=== PATIENT | female | born 1985 | race African-American/Black ===

== ENCOUNTER 2021-06-06 09:11 | Emergency (ER) | payer OTHER, SELFPAY ==
--- NOTE | ~2021-06-06 | CT_ITS ---
EXAMINATION: CT abdomen pelvis w con DATE: 06/06/2021 10:27 INDICATION: Abdominal pain and distention TECHNIQUE: Computed tomography (CT) of the abdomen and pelvis was performed with 100 mL Omnipaque-350 intravenous contrast. Automated exposure control and iterative reconstruction technique were employe d. The dose-length product was 1044.35 mGy-cm. COMPARISON: 08/12/2012 FINDINGS: Lung bases are clear. Heart size is normal. No pericardial or pleural effusion. Liver, gallbladder, s pleen, pancreas, bilateral adrenal glands and kidneys are normal. There are few diverticula along the sigmoid colon without adjacent inflammatory change to suggest div erticulitis. There is wall thickening along the proximal sigmoid colon which could be due to incomple te distention or mild colitis either infectious, inflammatory or ischemic in etiology. Normal appendi x measuring 8 mm in diameter with no periappendiceal inflammatory stranding to suggest acute appendic itis. Bladder, anteverted uterus and left adnexa are normal. 2.3 cm peripherally enhancing likely cor pus luteum cyst at the right adnexa. Small amount of likely physiologic free fluid in the deep pelvis . Subtle haziness to the fat at the root of the mesentery with no interval change in several mildly p rominent but still normal-sized mesenteric lymph nodes. No pathologically enlarged abdominal or pelvi c lymphadenopathy. Bones are unremarkable. IMPRESSION: 1. 2.3 cm likely corpus luteum cyst at the right adnexa with small amount of likely physiologic free fluid in the pelvis. 2. Mild wall thickening along the proximal sigmoid colon which could be due to incomplete distention although differential includes a mild colitis either infectious, inflammatory or ischemic in etiology . Reviewed, dictated and finalized at location A. IMPRESSION: 1. 2.3 cm likely corpus luteum cyst at the right adnexa with small amount of li slava physiologic free fluid in the pelvis. 2. Mild wall thickening along the proximal sigmoid colon which could be due to incomplete distention although differential includes a mild colitis either infe ctious, inflammatory or ischemic in etiology.
--- NOTE | ~2021-06-06 | US_ITS ---
CORRECTED REPORT EXAMINATION changd to US pelvic complete 06/06/2021 [facility] [place] EXAMINATION: US pelvic complete DATE: 06/06/2021 11:33 INDICATION: Ovarian cyst. Comparison:No prior studies for comparison. TECHNIQUE: Multiple transabdominal sonographic images of the pelvis performed. FINDINGS: The uterus measures 11.4 x 6.2 x 5.3 cm. The endometrial complex measures 8.7 mm. The right ovary measures 3.3 x 2.8 x 2.6 cm and the left ovary measures 3.4 x 1.9 x 1.8 cm. There are small follicles in each ovary. Normal doppler signal in both ovaries. There is no free fluid in the pelvis. There are no abnormal masses seen on either side. IMPRESSION: 1. Unremarkable pelvic ultrasound. Reviewed, dictated and finalized at location B. MTDD
[2021-06-06 09:18] VITALS: BP 116/66; PULSE 77; RESP 14; TEMP 36.7; O2SAT 100
[2021-06-06 10:01] LABS: Basophils Percent Auto 0.5 % (0.2-1.2); Eosinophils Absolute Auto 0.1 K/mm3 (0-0.3); Eosinophils Percent Auto 1.5 % (0-4.4); Hematocrit 37.3 % (37.0-47.0); Hemoglobin 11.9 g/dL (12.0-15.0); Immature Granulocyte Absolute 0.01 K/mm3 (0.00-0.031); Immature Granulocyte Percent A 0.2 % (0-0.5); Mean Corpuscular HGB Conc 31.9 g/dl (32-36); Mean Corpuscular Hemoglobin 23.1 pg (26-34); Mean Corpuscular Volume 72.3 fl (80-100); Mean Platelet Volume 10.4 fl (7.4-10.4); Monocytes Absolute Auto 0.3 K/mm3 (0.1-0.6); Monocytes Percent Auto 7.2 % (2.6-8.5); Neutrophils Absolute Auto 2.2 K/mm3 (1.3-6.7); Neutrophils Percent Auto 53.6 % (45.5-73.1); Platelet Count Result 286 k/mm3 (150-375); Red Blood Count 5.16 M/mm3 (4.2-5.4); Red Cell Distribution Width 13.8 % (11.5-14.5); White Blood Count 4.1 K/mm3 (4.5-10.0)
[2021-06-06 10:08] LABS: Add Urine Microscopic? NO; Appearance Urine Clear (Clear); Bilirubin Urine Negative (Negative); Blood Urine Negative (Negative); Color Urine Straw (Yellow); Glucose Urine UA Negative (Negative); Ketones Urine Negative (Negative); Leukocyte Esterase Ur Negative LEU/UL (Negative); Nitrate Urine Negative (Negative); Protein Urine Negative (Negative); Specific Grav Ur 1.012 (1.001-1.035); Urobilinogen Urine Negative mg/dL (<2.0)
[2021-06-06 10:13] LABS: Alanine Aminotransferase 14 U/L (4-35); Albumin Level 4.2 g/dL (3.5-5.1); Alkaline Phosphatase 54 U/L (38-126); Anion Gap 3 mmol/L (8-16); Aspartate Amino Transferase 22 U/L (14-36); Bilirubin,Total 0.1 mg/dL (0.2-1.3); Blood Urea Nitrogen 12 mg/dL (7-17); Calcium 8.5 mg/dL (8.4-10.2); Carbon Dioxide 29 mmol/L (22-30); Chloride 105 mmol/L (98-107); Estimated CRCL calculation 112 ml/min; Estimated Glomerular Filt Rate > 60; Glucose 111 mg/dL (65-110); Lipase 83 U/L (23-300); Potassium 4.2 mmol/L (3.4-5.0); Sodium 137 mmol/L (137-145)
--- NOTE | 2021-06-06 10:17 | ED.ABDPAIN ---
HPI - Abdominal Pain General Chief Complaint: Abdominal Pain Stated Complaint: abdominal pain Time Seen by Provider: 06/06/21 09:35 Source: patient Mode of arrival: ambulatory Limitations: no limitations History of Present Illness HPI narrative: This is a 35 year old female that presents to the ER for abdominal pain present over the last month. Reports she is now starting to feel bloated. She has not been evaluated for this yet. Denies any associated symptoms. Denies fever, vomiting, dysuria, hematuria, or diarrhea. Related Data Allergies Allergy/AdvReac Type Severity Reaction Status Date / Time No Known Allergies Allergy Verified 06/06/21 09:19 Review of Systems Review of Systems: CONSTITUTIONAL: Denies fever GASTROINTESTINAL: Reports abdominal pain. Denies nausea, vomiting, or diarrhea. GENITOURINARY: Denies dysuria or hematuria. All systems reviewed & are unremarkable except as noted in HPI and below PMFSH Surgical History Surgical History (Updated 06/06/21 @ 10:21 by Izabel Hinson PA-C) History of abdominoplasty Social History Social History Smoking status: Never smoker Alcohol intake: current Exam Narrative: GENERAL: Well-appearing, well-nourished, and in no acute distress. HEAD: Normocephalic, atraumatic. EYES: EOMI. CHEST: Clear to auscultation. No respiratory distress. No wheezes rales or rhonchi HEART: Regular rate and rhythm. No murmur heard. Normal peripheral pulses. ABDOMEN: Soft, nondistended, normal active bowel sounds. Mild tenderness to palpation throughout the abdomen, without guarding EXTREMITIES: Normal range of motion. No edema. SKIN: Warm, dry, no rash. NEURO: No focal deficits. Alert and oriented x3. PSYCH: Normal mood and affect Course Consultations Consultation #1: Spoke with Dr. Gatica about patient and work-up. Patient is to call to make an appointment for follow-up. Date: 06/06/21 Time: 12:09 Vital Signs Vital signs: Vital Signs Temperature 98.1 F 06/06/21 09:18 Pulse Rate 77 06/06/21 09:18 Respiratory Rate 14 06/06/21 09:18 Blood Pressure 116/66 06/06/21 09:18 Pulse Oximetry 100 06/06/21 09:18 Temperature 98.1 F 06/06/21 09:18 Pulse Rate 77 06/06/21 09:18 Respiratory Rate 14 06/06/21 09:18 Blood Pressure 116/66 06/06/21 09:18 Pulse Oximetry 100 06/06/21 09:18 MDM - Abdominal Pain MDM Narrative Medical decision making narrative: Patient presents to the emergency department for abdominal pain present over the last couple weeks. She is afebrile and nontoxic-appearing. Her vitals are stable. CBC and metabolic panel without concerning findings. UA without evidence of infection. Bedside test is negative. CT scan of the abdomen and pelvis shows a 2.3 cm likely corpus luteal cyst of the right adnexa with small amount of physiologic free fluid in the pelvis. Also showed mild wall thickening of the proximal sigmoid colon which could be due to incomplete distention. Pelvic ultrasound is unremarkable. Normal vascular flow to the ovaries. Spoke with Dr. Gatica about patient and work-up. Patient is to call to make an appointment for follow-up. Patient is stable and felt appropriate for further outpatient evaluation. She was given warnings to return the ER Lab Data Attestation: I reviewed the patient's lab results. Result diagrams: 06/06/21 09:54 06/06/21 09:54 Labs: Lab Results 06/06/21 06/06/21 06/06/21 Range/Units 09:54 09:54 09:54 WBC 4.1 L (4.5-10.0) K/mm3 RBC 5.16 (4.2-5.4) M/mm3 Hgb 11.9 L (12.0-15.0) g/dL Hct 37.3 (37.0-47.0) % MCV 72.3 L (80-100) fl MCH 23.1 L (26-34) pg MCHC 31.9 L (32-36) g/dl RDW 13.8 (11.5-14.5) % Plt Count 286 (150-375) k/mm3 MPV 10.4 (7.4-10.4) fl Immature Gran % (Auto) 0.2 (0-0.5) % Neut % (Auto) 53.6 (45.5-73.1) % Lymph % (Auto) 37.0 (18.3-44.2) % [place] % (Auto) 7.2 (2.6-8.5) % Eo
== END 2021-06-06 12:33 | disposition home or self-care (01) ==
PROVIDERS: Physician Assistant; Emergency Provider Emergency Medicine
DX: N83.201 Unspecified ovarian cyst, right side (principal)
CPT/HCPCS: 36415; 51701; 74177; 76830; 76856; 80053; 81003; 81025; 83690; 85025; 96365; 99284; J0131; Q9967